=== PATIENT | male | born 1985 | race Caucasian/White ===

== ENCOUNTER 2016-09-14 21:30 | Emergency (ER) | payer SELFPAY ==
[~2016-09-14] VITALS: Ht 175.3 cm; Wt 68.0 kg
[2016-09-14 23:15] VITALS: BP 145/85
== END 2016-09-14 23:39 | disposition home or self-care (01) ==
LOC: ER 22:44
DX: F19.10 Other psychoactive substance abuse, uncomplicated (principal); R45.1 Restlessness and agitation; R41.0 Disorientation, unspecified
CPT/HCPCS: 99284; Z7610